=== PATIENT | female | born 1975 | race Caucasian/White ===

== ENCOUNTER 2016-10-17 10:51 | Emergency (ER) | payer OTHER ==
[2016-10-17 11:06] VITALS: BMI 36.0
--- NOTE | 2016-10-17 11:11 | C.PDOC ---
Chief Complaint (Nursing): Chest Pain
[2016-10-17 11:57] LABS: HCG,QUALITATIVE URINE NEGATIVE (NEGATIVE)
[2016-10-17 12:04] LABS: SQUAMOUS EPITHIAL 1 /hpf (0-5); URINE BILIRUBIN NEGATIVE (NEGATIVE); URINE BLOOD NEGATIVE (NEGATIVE); URINE CLARITY Clear (Clear); URINE COLOR Yellow (YELLOW); URINE GLUCOSE (UA) NORMAL (Normal); URINE LEUKOCYTE ESTERASE NEG Leu/uL (Negative); URINE NITRATE NEGATIVE (NEGATIVE); URINE PROTEIN NEGATIVE (NEGATIVE); URINE UROBILINOGEN NORMAL mg/dL (0.2-1.0)
[2016-10-17 13:33] LABS: BASO # 0.1 K/uL (0.0-0.2); BASO % 0.8 % (0.0-2.0); EOS # 0.2 K/uL (0.0-0.7); EOS % 2.4 % (0.0-4.0); HEMOGLOBIN 11.7 g/dL (11.0-16.0); LYMPH # 2.5 K/uL (1.0-4.3); LYMPH % 25.1 % (20.0-40.0); MEAN CELL VOLUME 85.1 fL (81.0-99.0); MEAN CORPUSCULAR HEMOGLOBIN 27.4 pg (27.0-31.0); MEAN CORPUSCULAR HGB CONC 32.1 g/dL (33.0-37.0); MEAN PLATELET VOLUME 8.4 fL (7.2-11.7); MONO # 0.6 K/uL (0.0-0.8); NEUT # 6.6 K/uL (1.8-7.0); NEUT % 65.7 % (50.0-75.0); NRBC % 0.1 % (0.0-2.0); RBC 4.28 Mil/uL (3.80-5.20); RED CELL DISTRIBUTION WIDTH 15.1 % (11.5-14.5)
[2016-10-17 13:34] LABS: ALBUMIN 3.8 g/dL (3.5-5.0)
[2016-10-17 13:37] LABS: AST/SGOT 16 U/L (14-36); GFR AFRICAN-AMERICAN > 60; GFR NON-AFRICAN AMERICAN > 60
[2016-10-17 13:38] LABS: ALB/GLOB RATIO 1.2 (1.0-2.1); ALT/SGPT 23 U/L (9-52); BLOOD UREA NITROGEN 8 mg/dL (7-17); LIPASE 41 U/L (23-300)
--- NOTE | 2016-10-17 13:40 | C.PDOC ---
History Of Present Illness 40 y/o female c/o RUQ abdominal pain radiating to her back since yesterday. Worse after eating pork. Denies fever, chills, nausea, vomiting, diarrhea, or other associated symptoms. addendum: pt now sts she feels sob. not on ocp, no recent surgery or prolonged immobilization. will get d-dimer. will order cxr and give pepcid, sts still has small amount of pain in epigastric area on re-exam. Time Seen by Provider: 10/17/16 11:55 Chief Complaint (Nursing): Chest Pain History Per: Patient History/Exam Limitations: no limitations Onset/Duration Of Symptoms: Days Current Symptoms Are (Timing): Still Present Location Of Pain/Discomfort: RUQ Radiation Of Pain To:: Back Quality Of Discomfort: "Pain" Associated Symptoms: denies: Fever, Chills, Nausea, Vomiting, Diarrhea, Urinary Symptoms Recent travel outside of the [place]: No Abnormal Vaginal Bleeding: No Past Medical History Reviewed: Historical Data, Nursing Documentation, Vital Signs Vital Signs: Last Vital Signs Temp 98.8 F 10/17/16 18:30 Pulse 82 10/17/16 18:30 Resp 20 10/17/16 18:30 BP 100/61 10/17/16 18:30 Pulse Ox 99 10/17/16 18:30 - Medical History PMH: Asthma Family History: States: Unknown Family Hx - Social History Hx Alcohol Use: No Hx Substance Use: No Review Of Systems Constitutional: Negative for: Fever, Chills Cardiovascular: Negative for: Chest Pain, Palpitations Respiratory: Negative for: Shortness of Breath, Wheezing Gastrointestinal: Positive for: Abdominal Pain. Negative for: Nausea, Vomiting Genitourinary: Negative for: Dysuria, Frequency Musculoskeletal: Positive for: Back Pain Skin: Negative for: Rash Neurological: Negative for: Weakness, Numbness, Headache, Dizziness Physical Exam - Physical Exam Appears: Non-toxic, No Acute Distress Skin: Normal Color, Warm, Dry Head: Atraumatic, Normacephalic Chest: Symmetrical Cardiovascular: Rhythm Regular Respiratory: Normal Breath Sounds, No Rales, No Rhonchi, No Wheezing Gastrointestinal/Abdominal: Soft, Tenderness (RUQ ), No Distention, No Guarding , No Rebound Back: Normal Inspection Extremity: Normal ROM, No Calf Tenderness, Capillary Refill (< 2 sec.) Neurological/Psych: Oriented x3, Normal Speech, Normal Cognition ED Course And Treatment - Laboratory Results Result Diagrams: 10/17/16 13:20 10/17/16 13:20 ECG: Interpreted By Me ECG Rhythm: Sinus Rhythm Rate From EC (bpm) O2 Sat by Pulse Oximetry: 100 (RA) Pulse Ox Interpretation: Normal - CT Scan/US CT Chest w/ Contrast Other Rad Studies (CT/US): Read By Radiologist, Radiology Report Reviewed CT/US Interpretation: FINDINGS: PULMONARY ARTERIES: Unremarkable. No pulmonary embolism. AORTA: No acute findings. No thoracic aortic aneurysm. LUNGS: Unremarkable. No nodule, mass or pulmonary consolidation. PLEURAL SPACES: Unremarkable. No effusion or pneuomothorax. HEART: Unremarkable. No cardiomegaly. No significant pericardial effusion. LYMPH NODES: No lymphadenopathy. BONES, CHEST WALL: Unremarkable. No fracture or destructive lesion. OTHER FINDINGS: Unremarkable. IMPRESSION: Unremarkable CT pulmonary angiogram. No pulmonary embolus. Medical Decision Making Medical Decision Making: Plan: * Labs, ultrasound, Toradol. * Reassess Progress: ct neg for pe. pt resting comfortably in no acute distress. will d/c with protinix, dietary changes and f/u pmd Disposition Counseled Patient/Family Regarding: Studies Performed, Diagnosis, Need For Followup, Rx Given - Disposition Referrals: Vijay Brunner MD [Non-Staff] - Disposition: HOME/ ROUTINE Disposition Time: 18:15 Condition: STABLE Additional Instructions: Avoid fatty and fried foods. Avoid smoking, alcohol, spicy foods, acidy foods like tomatoes, oranges, citrus. Take Protonix as prescribed. Follow up with your doctor as soon as possible. Return to ER for any worsening symptoms. 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 - Scribe Statement The provider has reviewed the documentation as recorded by the Luis M Abreu All medical record entries made by the Luis M were at my direction and personally dictated by me. I have reviewed the chart and agree that the record accurately reflects my personal performance of the history, physical exam, medical decision making, and the department course for this patient. I have also personally directed, reviewed, and agree with the discharge instructions and disposition.
--- NOTE | 2016-10-17 14:57 | US ---
HISTORY: right and left up quad pain COMPARISON: None. TECHNIQUE: Sonographic evaluation of the abdomen. FINDINGS: LIVER: Measures 17.4 cm. Hepatopedal blood flow. Fatty infiltration manifest ultrasonographically as increased echogenicity of the liver parenchyma. No mass. No intrahepatic bile duct dilatation. GALLBLADDER: Unremarkable. No gallstones. COMMON BILE DUCT: Measures 5.3 mm. No stones. No dilatation. PANCREAS: Unremarkable as visualized. No mass. No ductal dilatation. RIGHT KIDNEY: Measures 4.1 x 10.9cm. Normal echogenicity. No calculus, mass, or hydronephrosis. LEFT KIDNEY: Measures 4.8 x 10.0cm. Normal echogenicity. No calculus, mass, or hydronephrosis. SPLEEN: Normal in size and contour. No mass. AORTA: No aneurysmal dilatation. IVC: Unremarkable. OTHER FINDINGS: None. IMPRESSION: No significant or acute findings to account for/ related to the clinical presentation. Additional benign and/or incidental findings described above.
--- NOTE | 2016-10-17 16:55 | RAD ---
HISTORY: sob COMPARISON: Comparison made with prior chest radiographs and CT scan chest both dated 10/11/2016 TECHNIQUE: Chest PA and lateral FINDINGS: LUNGS: No active pulmonary disease. PLEURA: No significant pleural effusion identified. No pneumothorax apparent. CARDIOVASCULAR: Normal. OSSEOUS STRUCTURES: No significant abnormalities. VISUALIZED UPPER ABDOMEN: Normal. OTHER FINDINGS: None. IMPRESSION: No active disease.
[2016-10-17] MEDS ORDERED: Iodixanol 320 MG/ML 100 ML BOTTLE IV ONE (16:58)
--- NOTE | 2016-10-17 18:07 | CT ---
PROCEDURE: CT Chest with contrast (Pulmonary Angiogram) HISTORY: Elevated D-dimer, chest pain right-sided. Shortness of breath By history, negative test (concurrent with this examination). COMPARISON: None available. TECHNIQUE: Axial computed tomography images were obtained of the chest in the pulmonary arterial phase of enhancement. Coronal and sagittal reformatted images were created and reviewed. Maximum intensity projection (MIP) reconstructed images in the following planes: Coronal and sagittal projections Intravenous contrast dose: 100 cc Visipaque 320 Mean Hounsfield unit values in the main pulmonary artery: 282.18 Radiation dose: Total exam DLP = 534.00 mGy-cm. This CT exam was performed using one or more of the following dose reduction techniques: Automated exposure control, adjustment of the mA and/or kV according to patient size, and/or use of iterative reconstruction technique. FINDINGS: PULMONARY ARTERIES: Unremarkable. No pulmonary embolism. AORTA: No acute findings. No thoracic aortic aneurysm. LUNGS: Unremarkable. No nodule, mass or pulmonary consolidation. PLEURAL SPACES: Unremarkable. No effusion or pneuomothorax. HEART: Unremarkable. No cardiomegaly. No significant pericardial effusion. LYMPH NODES: No lymphadenopathy. BONES, CHEST WALL: Unremarkable. No fracture or destructive lesion OTHER FINDINGS: Unremarkable. IMPRESSION: Unremarkable CT pulmonary angiogram. No pulmonary embolus.
[2016-10-17 18:31] VITALS: BP 100/61; PULSE 82; RESP 20; TEMP 98.8
[2016-10-19 11:04] VITALS: O2SAT 100
--- NOTE | 2016-10-19 16:12 | CARD ---
APPROVED REPORT EKG Measurement Heart [id number] <Conclusion> Normal sinus rhythm Normal ECG
== END 2016-10-17 18:26 | disposition home or self-care (01) ==
LOC: C.ER 10:51
DX: R10.13 Epigastric pain (principal)
CPT/HCPCS: 71020; 71275; 76700; 80053; 81001; 83690; 84703; 85025; 85378; 93005; 96374; 99285; J1885; Q9967

== ENCOUNTER 2018-02-04 18:29 | Emergency (ER) | payer OTHER ==
[2018-02-04 18:30] VITALS: BMI 36.0
[2018-02-04 19:09] VITALS: O2SAT 98
--- NOTE | 2018-02-04 20:08 | C.PDOC ---
History Of Present Illness 42 y/o female presents to the ED for evaluation of left rib/chest wall pain since yesterday. While walking yesterday and pushing a shopping cart, patient states the cart got stuck and abruptly stopped, causing her to trip and strike chest wall on the cart. Now complaining of worsening sternal pain and upper abdominal pain with bruise to left breast. Patient also vomited once today. Otherwise she denies any SOB, palpitations, dizziness, visual changes, headache, or other injuries. - HPI Time Seen by Provider: 02/04/18 19:33 Chief Complaint (Nursing): Rib Injury History Per: Patient History/Exam Limitations: no limitations Onset/Duration Of Symptoms: Days Injury Occurred (Timing): Days Ago: (1) Past Medical History Reviewed: Historical Data, Nursing Documentation, Vital Signs Vital Signs: Last Vital Signs Temp 98 F 02/04/18 19:06 Pulse 86 02/04/18 19:06 Resp 16 02/04/18 19:06 BP 132/89 02/04/18 19:06 Pulse Ox 98 02/04/18 19:06 - Medical History PMH: Asthma Family History: States: Unknown Family Hx - Social History Hx Alcohol Use: No Hx Substance Use: No Review Of Systems Constitutional: Negative for: Fever, Chills Eyes: Negative for: Pain, Vision Change ENT: Negative for: Ear Pain, Throat Pain Cardiovascular: Positive for: Chest Pain (at sternum/left breast). Negative for: Palpitations Respiratory: Negative for: Cough, Shortness of Breath Gastrointestinal: Positive for: Vomiting (x1), Abdominal Pain (epigastric, right upper). Negative for: Nausea Musculoskeletal: Negative for: Neck Pain, Back Pain Skin: Positive for: Bruising (left breast) Neurological: Negative for: Weakness, Numbness, Incoordination, Dizziness Physical Exam - Physical Exam Appears: Non-toxic, No Acute Distress Skin: Warm, Dry, Ecchymosis (left medial breast) Head: Atraumatic, Normacephalic, No Swelling Eye(s): bilateral: Normal Inspection, PERRL Oral Mucosa: Moist Neck: No Midline Cervical Tenderness, No Paracervical Tenderness, Supple Chest: Tenderness (along the sternum, epigastric area, and RUQ), Ecchymosis (Ecchymosis to pendulous left breast) Cardiovascular: Rhythm Regular, No Murmur Respiratory: Normal Breath Sounds, No Accessory Muscle Use, No Rhonchi, No Wheezing Gastrointestinal/Abdominal: Soft, Tenderness (over RUQ and epigastrium), No Guarding, No Rebound Back: No CVA Tenderness Extremity: Bilateral: Atraumatic, Normal Color And Temperature, Normal ROM Neurological/Psych: Oriented x3, Normal Speech ED Course And Treatment O2 Sat by Pulse Oximetry: 98 (RA) Pulse Ox Interpretation: Normal - CT Scan/US CT Chest Other Rad Studies (CT/US): Read By Radiologist, Radiology Report Reviewed CT/US Interpretation: 1. No acute intrathoracic injury is seen. 2. No acute intraabdominal visceral other organ injury is seen. 3. Study is limited by lack of intravenous contrast. 4. No large bloody collections secondary findings of lacerations. 5. No fractures are seen. Medical Decision Making Medical Decision Making: Plan: --CT Chest/abdsomen. pt with traumatic fall onto object with chest and ab pain- eval for rib fx organ injury. contusion ct neg, d/c home with analgesics.pt comfortable appearing. Disposition Counseled Patient/Family Regarding: Studies Performed, Diagnosis, Need For Followup, Rx Given - Disposition Referrals: Kym Yoo MD [Staff Provider] - Disposition: HOME/ ROUTINE Disposition Time: 21:50 Condition: GOOD Additional Instructions: Take ibuprofen for pain, Follow up with your doctor in 1-2 days. Avoid heavy lifting. 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 - Scribe Statement The provider has reviewed the documentation as recorded by the Scribe (Zoe Jean) All medical record entries made by the Scribe were at my direction and personally dictated by me. I have reviewed the chart and agree that the record accurately reflects my personal performance of the history, physical exam, medical decision making, and the department course for this patient. I have also personally directed, reviewed, and agree with the discharge instructions and disposition.
[2018-02-04 21:37] VITALS: BP 106/66; PULSE 92; RESP 18; TEMP 98.5
--- NOTE | 2018-02-05 08:28 | CT ---
Date of service: 02/04/2018 PROCEDURE: CT Chest, Abdomen and Pelvis without intravenous contrast HISTORY: fell onto metal shopping cart., chest pain COMPARISON: CT angio PE protocol study 10/17/2016; TECHNIQUE: Radiation dose: Total exam DLP = 1575.42 mGy-cm. This CT exam was performed using one or more of the following dose reduction techniques: Automated exposure control, adjustment of the mA and/or kV according to patient size, and/or use of iterative reconstruction technique. FINDINGS: CT CHEST WITHOUT CONTRAST: LUNGS: Clear. No nodule, mass or consolidation. MEDIASTINUM: Unremarkable. Normal caliber aorta and pulmonary arterial trunk. Normal size heart. There is absence of aortic atherosclerotic calcification and mural plaque on this cross-sectional study. LYMPH NODES: Unremarkable. PLEURA: Unremarkable. No pneumothorax. No pleural fluid. BONES: Unremarkable. OTHER FINDINGS: None. CT ABDOMEN AND PELVIS: LIVER: Unremarkable. No gross lesion or ductal dilatation. GALLBLADDER AND BILE DUCTS: Unremarkable. PANCREAS: Unremarkable. No gross lesion or ductal dilatation. SPLEEN: Unremarkable. ADRENALS: Unremarkable. No mass. KIDNEYS AND URETERS: Unremarkable. No hydronephrosis. No solid mass. VASCULATURE: No aortic atherosclerotic calcification or mural plaque present. Unremarkable. No aortic aneurysm. BOWEL: Unremarkable. No obstruction. No gross mural thickening. APPENDIX: Normal appendix. PERITONEUM: Unremarkable. No free fluid. No free air. LYMPH NODES: Unremarkable. No enlarged lymph nodes. BLADDER: Unremarkable. REPRODUCTIVE: Unremarkable. BONES: No acute fracture. OTHER FINDINGS: None. IMPRESSION: No fracture or dislocation. No gross soft tissue hematoma appreciated. Limited evaluation for visceral injuries without IV contrast-none appreciated.
== END 2018-02-04 21:58 | disposition home or self-care (01) ==
LOC: C.ER 18:29
DX: S20.212A Contusion of left front wall of thorax, initial encounter (principal); W01.198A Fall on same level from slipping, tripping and stumbling with subsequent striking against other object, initial encounter; Y93.01 Activity, walking, marching and hiking
CPT/HCPCS: 71250; 74176; 96372; 99284; J1885

== ENCOUNTER 2018-05-22 15:09 | Emergency (ER) | payer OTHER ==
[2018-05-22 15:10] VITALS: BMI 36.0
[2018-05-22 15:22] VITALS: BP 143/88; PULSE 112; RESP 18; TEMP 99.3; O2SAT 99
--- NOTE | 2018-05-23 20:09 | CARD ---
APPROVED REPORT Date of service: 05/22/2018 EKG Measurement Heart [id number] <Conclusion> Sinus tachycardia Otherwise normal ECG
== END 2018-05-22 15:29 | disposition left against medical advice (07) ==
LOC: C.ER 15:09
DX: Z02.89 Encounter for other administrative examinations (principal); R07.9 Chest pain, unspecified
CPT/HCPCS: 93005; LWBS0